=== PATIENT | male | born 1970 | race Caucasian/White ===

== ENCOUNTER 2020-10-24 13:19 | Outpatient (REF) | payer OTHER, SELFPAY ==
--- NOTE | 2020-10-24 | US_ITS ---
EXAMINATION: US UPPER EXTREMITY VENOUS, RIGHT CLINICAL INFORMATION: Right arm pain. COMPARISON: None. TECHNIQUE: Doppler spectral analysis and color flow Doppler imaging was performed of the right upper extremity. Compression and augmentation maneuvers were performed. FINDINGS: There is nonocclusive clot seen within the right peripheral basilic vein and median cubital vein. The remainder of the right upper extremity venous system is patent and compressible without abnormal filling defect. US/US venous duplex UE RT IMPRESSION: No evidence for right upper extremity deep vein thrombosis. Nonocclusive thrombus within the peripheral portion of right basilic vein and median cubital vein.
== END 2020-10-24 13:20 | disposition home or self-care (01) ==
LOC: HO.US 13:19
PROVIDERS: PCP Internal Medicine; Visit Provider Emergency Medicine
DX: M79.631 Pain in right forearm (principal)
CPT/HCPCS: 93971

== ENCOUNTER 2020-10-27 09:50 | Emergency (ER) | payer OTHER, SELFPAY ==
[2020-10-27 10:22] VITALS: BP 211/116; PULSE 92; RESP 16; TEMP 37.1; O2SAT 96; BMI 34.7
--- NOTE | 2020-10-27 11:24 | ECG_ITS ---
Test Reason : DIZZY Blood Pressure : / mmHG Vent. Rate : 081 BPM Atrial Rate : 081 BPM P-R Int : 136 ms QRS Dur : 096 ms QT Int : 358 ms P-R-T Axes : 041 031 056 degrees QTc Int : 415 ms Normal sinus rhythm Normal ECG No previous ECGs available Referred By: Tiffanie Gross Electronically Signed By:LOR MCHUGH MD
--- NOTE | 2020-10-27 11:24 | CT_ITS ---
EXAMINATION: CT HEAD WITHOUT CONTRAST CLINICAL INFORMATION: Dizziness. Elevated BP. COMPARISON: None TECHNIQUE: Contiguous axial imaging was performed from the skull base to vertex without intravenous administration of contrast. This CT examination was performed using dose optimization techniques as appropriate, variously including the following: *Automated exposure control *Adjustment of mA and/or kV according to patient size (this includes techniques or standardized protocols for targeted exams where dose is matched to indication/reason for exam; i.e. extremities or head) *Use of iterative reconstruction technique DLP: 701.4 mGy-cm FINDINGS: There is no evidence of acute intracranial hemorrhage or territorial infarction. No abnormal mass effect or midline shift is seen. Forbes to white matter differentiation is well preserved. No extra-axial fluid collections are identified. The ventricles are normal in size. Incidental note is made of bilateral basal ganglia calcifications and pineal gland calcifications. The osseous structures and soft tissues are normal. The mastoid air cells and visualized portions of the paranasal sinuses are well aerated. Incidental note is made of a lobulated soft tissue density within the right parotid gland measuring approximately 1 cm at its maximum dimension, of indeterminate etiology (image #1 series 2), not entirely included within the [id number].. CT/CT head/brain wo con IMPRESSION: 1. No acute intracranial pathology. 2. Incidental note is made of bilateral basal ganglia calcifications. 3. Approximately 1 cm lobulated prominent soft tissue seen within the visualized included part of the parotid gland, not optimally included within the field of view.
--- NOTE | 2020-10-27 11:24 | XR_ITS ---
EXAMINATION: XR CHEST CLINICAL INFORMATION: Dizziness. Elevated BP. COMPARISON: Chest done on 02/27/2017. TECHNIQUE: 2 views of the chest were obtained. FINDINGS: No significant abnormality is noted involving the heart, lungs, mediastinum, bony thorax or soft tissues. Stable asymmetric prominent costochondral junction is noted on the right. XR/XR chest 2V IMPRESSION: Unremarkable examination. No significant change since 02/27/2017.
[2020-10-27 11:55] VITALS: BP 175/115; PULSE 86; RESP 16; O2SAT 96
[2020-10-27 11:57] VITALS: BP 185/106; PULSE 82; RESP 22; TEMP 36.7; O2SAT 95
--- NOTE | 2020-10-27 11:58 | PC.NURSE ---
pt states he was recently admitted and treated for pneumonia. He stys he was told to get a follow up X ray with his PCP, called and was told he would have to wait for an appointment which made him anxious. HE states he came in because he wanted to get the x ray done. Pt has a history of ETOH and substance abuse, states he used a fentanyl patch he obtained from the street to treat his rib pain. Pt anxious, has rapid speech, also vague understanding of his medical history and problems.
[2020-10-27 12:20] LABS: Basophils Percent Auto 0.2 % (0-2); Eosinophils Percent Auto 0.1 % (0-4); Hematocrit 39.4 % (42-52); Imm Gran Abs Auto 0.07 X10*3/uL (0.00-0.03); Imm Gran Pct Auto 0.6 % (0.0-0.4); Lymphocytes Absolute Auto 1.3 X10*3/uL (1.2-4.9); Lymphocytes Percent Auto 11.8 % (20-40); MANUAL DIFF FLAG NO; Mean Corpuscular Hemoglobin 30.6 pg (27.0-33.0); Mean Corpuscular Volume 92.7 fL (80-98); Mean Platelet Volume 9.4 fL (9.4-12.4); Monocytes Absolute Auto 0.5 X10*3/uL (0.1-1.2); Monocytes Percent Auto 4.4 % (2-11); Neutrophils Absolute Auto 9.1 X10*3/uL (2.0-8.3); Neutrophils Percent Auto 82.9 % (45-73); Platelet Count 320 X10*3/uL (160-400); Red Blood Count 4.25 X10*6/uL (4.60-5.80); Red Cell Distribution Width 13.8 % (11.0-16.0)
[2020-10-27 12:21] LABS: Glucose Urine UA NEG (NEG); Leukocyte Esterase Urine NEG (NEG); Nitrite Urine NEG (NEG); Urine Blood NEG (NEG); Urine Ketones NEG (NEG); Urine Protein NEG (NEG-TRACE)
[2020-10-27 12:25] LABS: Appearance Urine CLEAR; Color Urine YELLOW
[2020-10-27 12:26] LABS: INTERNATIONAL NORM RATIO 0.9 (0.9-1.1); Prothrombin Time 11.2 SEC (10.8-13.0)
[2020-10-27 12:29] LABS: D Dimer 306 NG/ML
--- NOTE | 2020-10-27 12:39 | CT_ITS ---
EXAMINATION: CT ANGIOGRAM OF THE CHEST WITH AND WITHOUT CONTRAST (CT PULMONARY ANGIOGRAM FOR PE) CLINICAL INFORMATION: Reason for Exam pt c dizziness and elevated d-dimer COMPARISON: None TECHNIQUE: Prior to contrast administration, noncontrast localization images were obtained. Subsequently, multidetector volumetric imaging was performed from the thoracic inlet to below the diaphragms following the administration of 65 mL Omnipaque 350 intravenous contrast. No contrast reaction reported Sagittal, coronal, and MIP oblique sagittal reformatted images were obtained on the CT workstation, uploaded to PACS, and reviewed. This CT examination was performed using dose optimization techniques as appropriate, variously including the following: *Automated exposure control *Adjustment of mA and/or kV according to patient size (this includes techniques or standardized protocols for targeted exams where dose is matched to indication/reason for exam; i.e. extremities or head) *Use of iterative reconstruction technique Total exam dose-length product 471 mGy-cm FINDINGS: QUALITY OF STUDY/CONTRAST BOLUS: Satisfactory. PULMONARY ARTERIES: No central or segmental pulmonary emboli. THORACIC AORTA: No aneurysm or dissection. LUNG: No focal consolidation, nodules or masses. A calcified granuloma is present at the right lung base. PLEURA: No pleural effusion or pneumothorax. MEDIASTINUM: The heart size is upper limits of normal. No pericardial effusion. No hilar or mediastinal lymphadenopathy. No evidence of septal bowing or right heart strain. CHEST WALL/AXILLA: No axillary or internal mammary lymphadenopathy. OSSEOUS STRUCTURES: No acute or suspicious osseous abnormality. UPPER ABDOMEN: Unremarkable. No reflux of contrast into the hepatic veins to suggest elevated right heart pressures. CT/CT angio chest PE protocol IMPRESSION: No evidence of pulmonary emboli VTE: negative
[2020-10-27 12:43] LABS: Ethanol < 10 mg/dL
[2020-10-27 12:46] LABS: Amphetamine Screen Urine Not Detected (Not Detect); Barbiturates, Urine POSITIVE (Not Detect); Benzodiazepines Screen Urine Not Detected (Not Detect); Cannabinoid Screen Urine Not Detected (Not Detect); Cocaine Screen Urine POSITIVE (Not Detect); Opiate Screen Urine Not Detected (Not Detect); Phencyclidine Screen Urine Not Detected (Not Detect)
[2020-10-27 12:51] LABS: Alanine Aminotransferase 87 U/L (0-40); Albumin Level 4.1 g/dL (3.5-5.0); Alkaline Phosphatase 91 U/L (39-117); Anion Gap 15 (12-20); Aspartate Amino Transferase 38 U/L (5-37); Bilirubin Direct < 0.2 mg/dL (0.0-0.5); Bilirubin Total 0.5 mg/dL (0.0-1.0); Blood Urea Nitrogen 19 mg/dL (9-16); Calcium 9.4 mg/dL (8.4-10.2); Carbon Dioxide 26 mmol/L (22-29); Chloride 98 mmol/L (96-108); Creatinine Clr Calc Pharmacy 146.1; Estimated Glomerular Filt Rate > 60; Glucose Random 121 mg/dL (60-115); Magnesium 2.1 mg/dL (1.6-2.6); Potassium 4.9 mmol/l (3.3-5.1); Sodium 134 mmol/L (135-145); Total Protein 7.2 g/dL (6.5-8.0)
[2020-10-27 12:53] LABS: B Type Natriuretic Peptide 144 pg/mL (<100)
[2020-10-27] MEDS: LORazepam 2 MG/ML VIAL 1 MG IVPUSH (13:13)
[2020-10-27 14:01] VITALS: BP 172/102; PULSE 82; RESP 22; O2SAT 98
--- NOTE | 2020-10-27 14:05 | ED_ITS ---
HPI - General Adult General Chief complaint: General Medical Stated complaint: HIGH BLOOD PRESSURE Time Seen by Provider: 10/27/20 11:15 Source: patient Mode of arrival: ambulatory Limitations: no limitations History of Present Illness HPI narrative: 50yoM c PMHx of HTN, COPD, vertigo, anxiety and recent pneumonia presenting to the ED with complaints of dizziness c associated SOB, double vision, elevated blood pressure and anxiety for the past 3 days. Reports that the dizziness is all the time. Reports that he was admitted at [facility] then possibly intubated or in a coma per patient and transfer to [facility] around 10/03/2020 due to a really bad pneumonia. Reports that he believes he was negative for COVID. Denies any additional complaints or concerns at this time. Related Data Previous Rx's Medication Instructions Recorded albuterol sulfate 2 puff INHALATION Q4-6H PRN #8.5 g 10/27/20 azithromycin See Rx Instructions .ROUTE 10/27/20 .COMPLEX #6 tab meclizine 25 mg PO TID PRN #20 tab 10/27/20 prednisone 40 mg PO DAILY 5 Days #10 tab 10/27/20 Allergies Allergy/AdvReac Type Severity Reaction Status Date / Time No Known Allergies Allergy Verified 10/27/20 10:18 Review of Systems Review of Systems: Constitutional : No Fever, No Chills, No Night Sweats, No Fatigue, No Malaise ENT/Mouth : No Ear Pain, No Nasal Congestion, No Sinus Pain, No sore throat, No Rhinorrhea Eyes: No Eye Pain, No Swelling, No Redness, No Foreign Body, No Discharge, No Vision Changes Cardiovascular : No Chest Pain, + SOB, No Dyspnea on Exertion, No Orthopnea, No Palpitations Respiratory : No Cough, No Sputum, No Wheezing, No Dyspnea Gastrointestinal : No Nausea, No Vomiting, No Diarrhea, No Constipation, No abdominal Pain, No Hematochezia, No Melena Genitourinary : No Dysuria, No Urinary Frequency, No Urinary Incontinence, No Urgency, No Flank Pain Musculoskeletal : No joint pain, No Myalgias Skin : No lacerations Neuro : No Numbness, No Paresthesias, No Loss of Consciousness, + Dizziness, No Headache Yes all other systems are reviewed and are negative [facility] Past Medical History Attestation statement: The following information was validated with the patient. Medical History Anxiety COPD (chronic obstructive pulmonary disease) HTN (hypertension) Pneumonia Vertigo Social History Social History Alcohol intake: former Smoking Status: Current every day smoker Smoked in Last 30 Days: Yes Use of substances other than those prescribed or required for medical reasons: Yes Substance Use Type Other:: fentanyl Substance Use Frequency: Occasionally Last Used Substance: Days (ago) Any prior treatment program specific to substance use: Yes Advance Directives: No Advance Directives Information Provided: No Physical Exam Vital Signs: Vital Signs: Last Vital Signs Temp 98.1 F 10/27/20 11:57 Pulse 82 10/27/20 14:01 Resp 22 H 10/27/20 14:01 BP 172/102 H 10/27/20 14:01 Pulse Ox 98 10/27/20 14:01 Body Mass Index 34.7 Vital signs have been reviewed as normal and appeared to be correct. Blood pressure normal. Heart rate normal. Respiration rate normal. Temperature normal. Oxygen saturation normal. Appearance: Alert. Oriented X3 although very anxious keeps walking all over room and hallways. No acute distress. Head: Normal external exam. Normocephalic. Atraumatic. Able to rotate head bilaterally. Eyes: PERRLA. EOMI. No nystagmus noted. Conjunctiva and sclera normal. Eyelids normal. Corneal reflex normal. ENT: EAC normal. TM's Normal. Hearing normal. Pharynx normal. Uvula midline. tongue midline. Moist mucous membranes. No trismus noted. No drooling noted. No muffled voice noted. Neck: Normal inspection. Neck supple. FROM. No adenopathy. Thyroid Normal. No meningeal signs. No neck mass noted. CVS: Normal heart rate and rhythm. Heart sound normal. No murmurs noted. Pulses normal throughout. Respiratory: No respiratory distress. Painless inspiration. Breath sounds normal. No wheezes/rales/rhonchi noted. Chest nontender. No accessory muscle usage noted or decreased air movement noted. Abdomen: Soft and nontender. Bowel sounds normal in all 4 quadrants. No distention noted. No organomegaly noted. No visible injury noted. Back: No CVA tenderness. Full range of motion noted. Skin: Skin warm and dry. Normal skin color. Normal skin turgor. No rashes/lesions/lacerations noted. Extremities: No lower extremity edema. Extremities exhibit normal range of motion. Extremities nontender. Able to shrug shoulders bilaterally and keep up against resistance. Neuro: Oriented X 3. No motor deficit. No sensory deficit. Reflexes normal. Moving all extremities. No focal motor deficits. Cranial nerves II-XI intact bilaterally. Facial strength normal. Normal cognition. Speech normal. Gait normal. Strength 5/5 throughout. No pronator drift. No tremor noted. No fasciculations noted. Muscle tone normal throughout. No asterixis noted. [id number] test normal. Heel to cano test normal. Tandem gait normal. Does not sway with eyes open. Romberg test negative. Rapid alternating movement upper extremity normal. Rapid alternating movement lower extremity normal. Hand drop from overhead-Mrs. face. No rigidity noted. NIHSS score 0. NIH Stroke Scale Internal: Initial- Upon Arrival Time: 11:22 Level of Consciousness: Alert Level of Consciousness Questions: Answers both questions correctly Level of Consciousness Commands: Performs both tasks correctly Best Gaze: Normal Visual: No visual loss Facial Palsy: Normal Motor Arm (Right): No drift Motor Arm (Left): No drift Motor Leg (Right): No drift Motor Leg (Left): No drift Limb Ataxia: Absent Sensory: Normal Best Language: No aphasia Dysarthia: Normal Extinction and Inattention: No abnormality Score: 0 Course Course Course Narrative: 11:22 - 50yoM c PMHx of HTN, COPD, vertigo, anxiety and recent pneumonia presenting to the ED with complaints of dizziness c associated SOB, double vision, elevated bl ood pressure and anxiety for the past 3 days. - Concern for CVA vs ACS vs Vertigo vs PE - Plan: Labs, CXR, EKG, CT scan of brain then re-evaluate Reevaluation(s) Reevaluation #1: - D-dimer elevated over 300 therefore will obtain CTA to evaluate for possible PE otherwise all other labs WNL. Troponin less than 5. EKG normal sinus rhythm no acute ischemic changes noted. - awaiting CTA of chest. Time: 12:39 Reevaluation #2: - CTA of chest negative for any acute processes. Will DC home with a script for meclizine for the patient's vertigo and instructions to follow-up with his primary care provider based on his hypertension although patient is asymptomatic for his blood pressure and was recently started on lisinopril 20 mg therefore he has an appointment on with his PCP will not make any changes as patient is asymptomatic for blood pressure. Otherwise instructed to return if any new or worsening symptoms. Patient understands agrees with this plan. Time: 15:40 Medical Decision Making Medical Records Medical records reviewed: Yes I reviewed the patient's medical records. Lab Data Lab results reviewed: Yes I reviewed the patient's lab results. Result diagrams: 10/27/20 12:12 10/27/20 12:11 Labs: Lab Results 10/27/20 10/27/20 10/27/20 Range/Units 11:59 11:59 12:07 WBC (4.8-10.8) X10*3/uL RBC (4.60-5.80) X10*6/uL Hgb (14.0-18.0) g/dl Hct (42-52) % MCV (80-98) fL MCH (27.0-33.0) pg MCHC (31.0-36.0) g/dl RDW (11.0-16.0) % Plt Count (160-400) X10*3/uL MPV (9.4-12.4) fL Immature Gran % (Auto) (0.0-0.4) % Neut % (Auto) (45-73) % Lymph % (Auto) (20-40) % [place] % (Auto) (2-11) % Eos % (Auto) (0-4) % Baso % (Auto) (0-2) % Lymph # (Auto) (1.2-4.9) X10*3/uL [place] # (Auto) (0.1-1.2) X10*3/uL Eos # (Auto) (0.0-0.4) X10*3/uL Baso # (Auto) (0.0-0.2) X10*3/uL Abs Immat Gran (auto) (0.00-0.03) X10*3/uL Absolute Neuts (auto) (2.0-8.3) X10*3/uL Absolute Nucleated RBC (0.0-0.012) X10*3/uL Nucleated RBC % (auto) (0.0-0.2) /100WBC PT (10.8-13.0) SEC INR (0.9-1.1) D-Dimer NG/ML Sodium (135-145) mmol/L Potassium (3.3-5.1) mmol/l Chloride (96-108) mmol/L Carbon Dioxide (22-29) mmol/L Anion Gap (12-20) BUN (9-16) mg/dL Creatinine (0.5-1.4) mg/dL Estim Creat Clear Calc Estimated GFR Random Glucose (60-115) mg/dL Calcium (8.4-10.2) mg/dL Magnesium (1.6-2.6) mg/dL Total Bilirubin (0.0-1.0) mg/dL Direct Bilirubin (0.0-0.5) mg/dL AST (5-37) U/L ALT (0-40) U/L Alkaline Phosphatase (39-117) U/L Troponin I High Sens (<3.5-35.0) ng/L B-Natriuretic Peptide (<100) pg/mL Total Protein (6.5-8.0) g/dL Albumin (3.5-5.0) g/dL Urine Color YELLOW Urine Appearance CLEAR Urine pH 7.0 (5.0-8.0) Ur Specific [place] 1.010 (1.005-1.025) Urine Protein NEG (NEG-TRACE) MG/DL Urine Glucose (UA) NEG (NEG) MG/DL Urine Ketones NEG (NEG) MG/DL Urine Blood NEG (NEG) Urine Nitrite NEG (NEG) Ur Leukocyte Esterase NEG (NEG) Urine Opiates Screen Not Detected (Not Detect) Ur Barbiturates Screen POSITIVE H (Not Detect) Ur Phencyclidine Scrn Not Detected (Not Detect) Ur Amphetamines Screen Not Detected (Not Detect) U Benzodiazepines Scrn Not Detected (Not Detect) Urine Cocaine Screen POSITIVE H (Not Detect) U Marijuana (THC) Screen Not Detected (Not Detect) Ethyl Alcohol mg/dL Coronavirus (PCR) NEGATIVE (Negative) Influenza Type A (PCR) NEGATIVE (Negative) Influenza Type B (PCR) NEGATIVE (Negative) RSV RNA Qual (PCR) NEGATIVE (Negative) 10/27/20 10/27/20 10/27/20 Range/Units 12:11 12:11 12:11 WBC (4.8-10.8) X10*3/uL RBC (4.60-5.80) X10*6/uL Hgb (14.0-18.0) g/dl Hct (42-52) % MCV (80-98) fL MCH (27.0-33.0) pg MCHC (31.0-36.0) g/dl RDW (11.0-16.0) % Plt Count (160-400) X10*3/uL MPV (9.4-12.4) fL Immature Gran % (Auto) (0.0-0.4) % Neut % (Auto) (45-73) % Lymph % (Auto) (20-40) % [place] % (Auto) (2-11) % Eos % (Auto) (0-4) % Baso % (Auto) (0-2) % Lymph # (Auto) (1.2-4.9) X10*3/uL [place] # (Auto) (0.1-1.2) X10*3/uL Eos # (Auto) (0.0-0.4) X10*3/uL Baso # (Auto) (0.0-0.2) X10*3/uL Abs Immat Gran (auto) (0.00-0.03) X10*3/uL Absolute Neuts (auto) (2.0-8.3) X10*3/uL Absolute Nucleated RBC (0.0-0.012) X10*3/uL Nucleated RBC % (auto) (0.0-0.2) /100WBC PT 11.2 (10.8-13.0) SEC INR 0.9 (0.9-1.1) D-Dimer NG/ML Sodium 134 L (135-145) mmol/L Potassium 4.9 (3.3-5.1) mmol/l Chloride 98 (96-108) mmol/L Carbon Dioxide 26 (22-29) mmol/L Anion Gap 15 (12-20) BUN 19 H (9-16) mg/dL Creatinine 0.85 (0.5-1.4) mg/dL Estim Creat Clear Calc 146.1 Estimated GFR > 60 Random Glucose 121 H (60-115) mg/dL Calcium 9.4 (8.4-10.2) mg/dL Magnesium 2.1 (1.6-2.6) mg/dL Total Bilirubin 0.5 (0.0-1.0) mg/dL Direct Bilirubin < 0.2 (0.0-0.5) mg/dL AST 38 H (5-37) U/L ALT 87 H (0-40) U/L Alkaline Phosphatase 91 (39-117) U/L Troponin I High Sens 5.0 (<3.5-35.0) ng/L B-Natriuretic Peptide 144 H (<100) pg/mL Total Protein 7.2 (6.5-8.0) g/dL Albumin 4.1 (3.5-5.0) g/dL Urine Color Urine Appearance Urine pH (5.0-8.0) Ur Specific [place] (1.005-1.025) Urine Protein (NEG-TRACE) MG/DL Urine Glucose (UA) (NEG) MG/DL Urine Ketones (NEG) MG/DL Urine Blood (NEG) Urine Nitrite (NEG) Ur Leukocyte Esterase (NEG) Urine Opiates Screen (Not Detect) Ur Barbiturates Screen (Not Detect) Ur Phencyclidine Scrn (Not Detect) Ur Amphetamines Screen (Not Detect) U Benzodiazepines Scrn (Not Detect) Urine Cocaine Screen (Not Detect) U Marijuana (THC) Screen (Not Detect) Ethyl Alcohol mg/dL Coronavirus (PCR) (Negative) Influenza Type A (PCR) (Negative) Influenza Type B (PCR) (Negative) RSV RNA Qual (PCR) (Negative) 10/27/20 10/27/20 10/27/20 Range/Units 12:11 12:11 12:12 WBC 11.0 H (4.8-10.8) X10*3/uL RBC 4.25 L (4.60-5.80) X10*6/uL Hgb 13.0 L (14.0-18.0) g/dl Hct 39.4 L (42-52) % MCV 92.7 (80-98) fL MCH 30.6 (27.0-33.0) pg MCHC 33.0 (31.0-36.0) g/dl RDW 13.8 (11.0-16.0) % Plt Count 320 (160-400) X10*3/uL MPV 9.4 (9.4-12.4) fL Immature Gran % (Auto) 0.6 H (0.0-0.4) % Neut % (Auto) 82.9 H (45-73) % Lymph % (Auto) 11.8 L (20-40) % [place] % (Auto) 4.4 (2-11) % Eos % (Auto) 0.1 (0-4) % Baso % (Auto) 0.2 (0-2) % Lymph # (Auto) 1.3 (1.2-4.9) X10*3/uL [place] # (Auto) 0.5 (0.1-1.2) X10*3/uL Eos # (Auto) 0.0 (0.0-0.4) X10*3/uL Baso # (Auto) 0.0 (0.0-0.2) X10*3/uL Abs Immat Gran (auto) 0.07 H (0.00-0.03) X10*3/uL Absolute Neuts (auto) 9.1 H (2.0-8.3) X10*3/uL Absolute Nucleated RBC 0.000 (0.0-0.012) X10*3/uL Nucleated RBC % (auto) 0.0 (0.0-0.2) /100WBC PT (10.8-13.0) SEC INR (0.9-1.1) D-Dimer 306 NG/ML Sodium (135-145) mmol/L Potassium (3.3-5.1) mmol/l Chloride (96-108) mmol/L Carbon Dioxide (22-29) mmol/L Anion Gap (12-20) BUN (9-16) mg/dL Creatinine (0.5-1.4) mg/dL Estim Creat Clear Calc Estimated GFR Random Glucose (60-115) mg/dL Calcium (8.4-10.2) mg/dL Magnesium (1.6-2.6) mg/dL Total Bilirubin (0.0-1.0) mg/dL Direct Bilirubin (0.0-0.5) mg/dL AST (5-37) U/L ALT (0-40) U/L Alkaline Phosphatase (39-117) U/L Troponin I High Sens (<3.5-35.0) ng/L B-Natriuretic Peptide (<100) pg/mL Total Protein (6.5-8.0) g/dL Albumin (3.5-5.0) g/dL Urine Color Urine Appearance Urine pH (5.0-8.0) Ur Specific [place] (1.005-1.025) Urine Protein (NEG-TRACE) MG/DL Urine Glucose (UA) (NEG) MG/DL Urine Ketones (NEG) MG/DL Urine Blood (NEG) Urine Nitrite (NEG) Ur Leukocyte Esterase (NEG) Urine Opiates Screen (Not Detect) Ur Barbiturates Screen (Not Detect) Ur Phencyclidine Scrn (Not Detect) Ur Amphetamines Screen (Not Detect) U Benzodiazepines Scrn (Not Detect) Urine Cocaine Screen (Not Detect) U Marijuana (THC) Screen (Not Detect) Ethyl Alcohol < 10 mg/dL Coronavirus (PCR) (Negative) Influenza Type A (PCR) (Negative) Influenza Type B (PCR) (Negative) RSV RNA Qual (PCR) (Negative) Imaging Data CT scan - head: Attestation: I personally reviewed and interpreted this imaging study as follows: Radiologist's impression: IMPRESSION: 1. No acute intracranial pathology. 2. Incidental note is made of bilateral basal ganglia calcifications. 3. Approximately 1 cm lobulated prominent soft tissue seen within the visualized included part of the parotid gland, not optimally included within the field of view. Chest x-ray: Attestation: I personally reviewed and interpreted this imaging study as follows: Radiologist's impression: IMPRESSION: Unremarkable examination. No significant change since 02/27/2017. cta of chest for pe: Attestation: I personally reviewed and interpreted this imaging study as follows: Radiologist's impression: IMPRESSION: No evidence of pulmonary emboli VTE: negative ECG Data Attestation: I personally reviewed and interpreted this ECG as follows: Interpretation: Normal sinus rhythm with a ventricular rate of 81 with a normal AR interval normal QRS duration normal QT/QTC interval. No acute ischemic changes noted. No prior EKGs to compare to at this time. Discharge Plan Discharge Clinical Impression: Vertigo, Anxiety, HTN (hypertension), COPD (chronic obstructive pulmonary disease), Lesion of parotid gland Patient Disposition: Home, Self-Care Instructions: Vertigo (ED), COPD (Chronic Obstructive Pulmonary Disease) (ED), Hypertension (ED), Anxiety (ED) Prescriptions: New meclizine 25 mg tablet 25 mg PO TID PRN (Reason: dizziness) Qty: 20 RF: 0 albuterol sulfate 90 mcg/actuation HFA aerosol inhaler 2 puff inhalation Q4-6H PRN (Reason: shortness of breath or wheezing) Qty: 8.5 RF: 0 prednisone 20 mg tablet 40 mg PO DAILY 5 Days Qty: 10 RF: 0 azithromycin 250 mg tablet See Rx Instructions .ROUTE .COMPLEX Qty: 6 RF: 0 Referrals: Trinity Rdz MD [Primary Care Provider] - 2 days Uli Moran [Physician] - 2 days (Parotid gland lesion)
[2020-10-27 14:25] LABS: Influenza A PCR NEGATIVE (Negative); Influenza B PCR NEGATIVE (Negative); Resp Syncy Virus RNA Qual PCR NEGATIVE (Negative); SARS COV2 PCR INHOUSE NEGATIVE (Negative)
[2020-10-27] MEDS: iohexoL 350 MG/ML 100 ML INFUS..BTL IV (14:42)
== END 2020-10-27 16:14 | disposition home or self-care (01) ==
PROVIDERS: Physician Assistant Medical; Emergency Provider Emergency Medicine Emergency Medical Services; PCP Internal Medicine
DX: R42 Dizziness and giddiness (principal); Z20.828 Contact with and (suspected) exposure to other viral communicable diseases; F41.9 Anxiety disorder, unspecified; I10 Essential (primary) hypertension; J44.9 Chronic obstructive pulmonary disease, unspecified; D11.0 Benign neoplasm of parotid gland; F17.200 Nicotine dependence, unspecified, uncomplicated; Z79.899 Other long term (current) drug therapy
CPT/HCPCS: 0241U; 36415; 70450; 71046; 71275; 80048; 80076; 80307; 80320; 81003; 83735; 83880; 84484; 85025; 85379; 85610; 93005; 96374; 99284; J2060; Q9967

== ENCOUNTER 2023-10-05 14:08 | Outpatient (REF) | payer OTHER, SELFPAY ==
[2023-10-05 18:29] LABS: Alanine Aminotransferase 87 U/L (0-40); Albumin Level 3.3 g/dL (3.5-5.0); Alkaline Phosphatase 140 U/L (39-117); Anion Gap 15 (12-20); Aspartate Amino Transferase 56 U/L (5-37); Bilirubin Total 0.2 mg/dL (0.0-1.0); Blood Urea Nitrogen 35 mg/dL (9-16); Calcium 8.9 mg/dL (8.4-10.2); Carbon Dioxide 23 mmol/L (22-29); Chloride 103 mmol/L (96-108); Estimated Glomerular Filt Rate > 60; Glucose Random 94 mg/dL (60-115); Potassium 4.2 mmol/L (3.3-5.1); Sodium 137 mmol/L (135-145); Total Protein 7.2 g/dL (6.5-8.0)
== END 2023-10-05 14:09 | disposition home or self-care (01) ==
LOC: HO.CHCLDS 14:08
PROVIDERS: Visit Provider Internal Medicine
DX: E11.628 Type 2 diabetes mellitus with other skin complications (principal)
CPT/HCPCS: 36415; 80053

== ENCOUNTER 2023-12-14 14:44 | Outpatient (REF) | payer OTHER, SELFPAY ==
[2023-12-14 17:54] LABS: MANUAL DIFF FLAG NO
[2023-12-14 18:12] LABS: Basophils Absolute Auto 0.1 X10*3/uL (0.0-0.2); Basophils Percent Auto 0.8 % (0-2); Eosinophils Absolute Auto 0.3 X10*3/uL (0.0-0.4); Eosinophils Percent Auto 3.3 % (0-4); Hematocrit 45.7 % (42.0-52.0); Hemoglobin 14.8 g/dl (14.0-18.0); Imm Gran Abs Auto 0.04 X10*3/uL (0.00-0.03); Imm Gran Pct Auto 0.4 % (0.0-0.4); Lymphocytes Absolute Auto 2.4 X10*3/uL (1.2-4.9); Lymphocytes Percent Auto 25.5 % (20-40); Mean Corpuscular HGB Conc 32.4 g/dl (31.0-36.0); Mean Corpuscular Hemoglobin 29.6 pg (27.0-33.0); Mean Corpuscular Volume 91.4 fL (80.0-98.0); Mean Platelet Volume 9.6 fL (9.4-12.4); Monocytes Absolute Auto 0.6 X10*3/uL (0.1-1.2); Monocytes Percent Auto 6.8 % (2-11); Neutrophils Absolute Auto 5.9 x10*3/uL (2.0-8.3); Neutrophils Percent Auto 63.2 % (45-73); Platelet Count 496 X10*3/uL (160-400); Red Cell Distribution Width 14.7 % (11.0-16.0); White Blood Count 9.3 X10*3/uL (4.8-10.8)
[2023-12-14 18:27] LABS: Alanine Aminotransferase 38 U/L (0-40); Albumin Level 3.7 g/dL (3.5-5.0); Alkaline Phosphatase 124 U/L (39-117); Anion Gap 15 (12-20); Aspartate Amino Transferase 28 U/L (5-37); Bilirubin Total 0.2 mg/dL (0.0-1.0); Blood Urea Nitrogen 40 mg/dL (9-16); Calcium 9.8 mg/dL (8.4-10.2); Carbon Dioxide 25 mmol/L (22-29); Chloride 100 mmol/L (96-108); Estimated Glomerular Filt Rate 48; Glucose Random 167 mg/dL (60-115); Potassium 4.5 mmol/L (3.3-5.1); Sodium 135 mmol/L (135-145); Total Protein 8.2 g/dL (6.5-8.0)
[2023-12-14 18:43] LABS: TSH reflex Free T4 4.96 uIU/mL (0.32-4.0)
[2023-12-14 19:30] LABS: Free T4 (Free Thyroxine) 1.04 ng/dL (0.71-1.85)
[2023-12-15 13:08] LABS: HBS Num1 0.19 mIU/mL (0-7.99); HBc Num1 0.18 S/CO (0.00-0.79); HBsAGNum1 0.33 S/CO (0.00-0.99); Hepatitis A Antibody IgM 0.12 Index (0-0.79); Hepatitis B Core Antibody Nonreactive (Nonreactive); Hepatitis B Surface Antigen Negative (Negative); ~HepC Num1 0.19 S/CO (0.00-0.79); ~Hepatitis A Antibody IgM Nonreactive (Nonreactive); ~Hepatitis B Surface Antibody NONREACTIVE (Nonreactive); ~Hepatitis C Antibody Nonreactive (Nonreactive)
== END 2023-12-14 14:45 | disposition home or self-care (01) ==
LOC: HO.CHCLDS 14:44
PROVIDERS: Visit Provider Internal Medicine
DX: R06.02 Shortness of breath (principal); I12.9 Hypertensive chronic kidney disease with stage 1 through stage 4 chronic kidney disease, or unspecified chronic kidney disease; E10.22 Type 1 diabetes mellitus with diabetic chronic kidney disease; E10.628 Type 1 diabetes mellitus with other skin complications; N18.2 Chronic kidney disease, stage 2 (mild); J44.9 Chronic obstructive pulmonary disease, unspecified; F11.20 Opioid dependence, uncomplicated; R74.01 Elevation of levels of liver transaminase levels
CPT/HCPCS: 36415; 80053; 84439; 84443; 85025; 86704; 86706; 86709; 86803; 87340

== ENCOUNTER 2024-06-07 14:32 | Outpatient (REF) | payer OTHER, SELFPAY ==
[2024-06-07 16:00] LABS: MANUAL DIFF FLAG NO
[2024-06-07 16:04] LABS: Basophils Absolute Auto 0.1 X10*3/uL (0.0-0.2); Basophils Percent Auto 0.9 % (0-2); Eosinophils Absolute Auto 0.2 X10*3/uL (0.0-0.4); Eosinophils Percent Auto 1.3 % (0-4); Hematocrit 36.2 % (42.0-52.0); Imm Gran Abs Auto 0.06 X10*3/uL (0.00-0.03); Imm Gran Pct Auto 0.4 % (0.0-0.4); Lymphocytes Absolute Auto 1.6 X10*3/uL (1.2-4.9); Lymphocytes Percent Auto 12.1 % (20-40); Mean Corpuscular HGB Conc 33.1 g/dl (31.0-36.0); Mean Corpuscular Hemoglobin 29.1 pg (27.0-33.0); Mean Corpuscular Volume 87.9 fL (80.0-98.0); Mean Platelet Volume 11.9 fL (9.4-12.4); Monocytes Absolute Auto 1.1 X10*3/uL (0.1-1.2); Neutrophils Absolute Auto 10.5 x10*3/uL (2.0-8.3); Neutrophils Percent Auto 77.3 % (45-73); Platelet Count 249 X10*3/uL (160-400); Red Blood Count 4.12 X10*6/uL (4.60-5.80); Red Cell Distribution Width 17.3 % (11.0-16.0); White Blood Count 13.6 X10*3/uL (4.8-10.8)
[2024-06-07 16:17] LABS: Alanine Aminotransferase 47 U/L (0-40); Albumin Level 2.6 g/dL (3.5-5.0); Alkaline Phosphatase 544 U/L (39-117); Anion Gap 16 (12-20); Aspartate Amino Transferase 112 U/L (5-37); Bilirubin Direct 1.6 mg/dL (0.0-0.5); Bilirubin Total 2.2 mg/dL (0.0-1.0); Blood Urea Nitrogen 30 mg/dL (9-16); Calcium 9.1 mg/dL (8.4-10.2); Carbon Dioxide 19 mmol/L (22-29); Chloride 105 mmol/L (96-108); Estimated Glomerular Filt Rate 32; Glucose Random 180 mg/dL (60-115); Potassium 4.2 mmol/L (3.3-5.1); Sodium 136 mmol/L (135-145); Total Protein 7.8 g/dL (6.5-8.0)
== END 2024-06-07 14:33 | disposition home or self-care (01) ==
LOC: HO.HHCL 14:32
PROVIDERS: Internal Medicine; Visit Provider Internal Medicine
DX: I10 Essential (primary) hypertension (principal); R19.01 Right upper quadrant abdominal swelling, mass and lump
CPT/HCPCS: 36415; 80048; 80076; 85025

== ENCOUNTER 2024-06-08 | Outpatient (REF) | payer OTHER, SELFPAY | END 2024-06-08 00:01 | disposition home or self-care (01) | LOC: HO.HHCLNP | PROVIDERS: Visit Provider Family Medicine | DX: L03.012 Cellulitis of left finger (principal) | CPT/HCPCS: 87070; 87077; 87147; 87186; 87205 ==

== ENCOUNTER 2024-06-08 16:15 | Outpatient (REF) | payer OTHER, SELFPAY ==
--- NOTE | ~2024-06-08 | XR_ITS ---
EXAMINATION: XR HAND, LEFT CLINICAL INFORMATION: Cellulitis of left middle finger COMPARISON: None available. TECHNIQUE: PA, lateral, and oblique views of the left hand. FINDINGS: There is soft tissue swelling around the proximal and mid middle finger. The bones are normal. No fracture. No evidence of osteomyelitis. Alignment is anatomic. Joint spaces are maintained. No erosions or soft tissue calcifications. XR/XR hand LT min 3V IMPRESSION: Soft tissue swelling around the middle finger. No evidence of osteomyelitis.
== END 2024-06-08 16:16 | disposition home or self-care (01) ==
LOC: HO.HHCX 16:15
PROVIDERS: Visit Provider Family Medicine
DX: L03.012 Cellulitis of left finger (principal)
CPT/HCPCS: 73130